=== PATIENT | female | born 1970 | race Caucasian/White ===

== ENCOUNTER 2016-05-05 20:13 | Emergency (ER) | payer BC ==
[2014-04-17 00:31] VITALS: BMI 25.9
[~2016-05-05 20:13] MED LIST: CELEXA20 MG PO; IBUPROFEN600 MG PO; PRILOSEC20 MG PO
== END 2016-05-05 23:03 | disposition home or self-care (01) ==
LOC: D.ER 20:13
DX: J06.9 Acute upper respiratory infection, unspecified (principal); J01.90 Acute sinusitis, unspecified; J20.9 Acute bronchitis, unspecified; F17.200 Nicotine dependence, unspecified, uncomplicated

== ENCOUNTER → 2017-01-05 08:34 | Outpatient (CLI) | payer BC ==
[2014-04-17 00:31] VITALS: BMI 25.9
[~2017-01-05 08:34] MED LIST changes: +HYDROCODONE-APA1 TAB PO; +TORADOL10 MG PO; +VOLTAREN100 GM TOPICAL; +ZOFRAN ODT4 MG/UDTAB PO; +ZYLOPRIM300 MG PO
== END | disposition home or self-care (01) ==
LOC: D.NM 08:34
DX: K80.80 Other cholelithiasis without obstruction (principal)

== ENCOUNTER 2017-01-05 17:37 | Emergency (ER) | payer BC ==
[2014-04-17 00:31] VITALS: BMI 25.9
[~2017-01-05 17:37] MED LIST changes: -HYDROCODONE-APA1 TAB PO; -TORADOL10 MG PO; -VOLTAREN100 GM TOPICAL; -ZOFRAN ODT4 MG/UDTAB PO; -ZYLOPRIM300 MG PO
[2017-01-05 18:11] LABS: BASOPHILS 0.3 % (0-2); EOSINOPHILS 2.3 % (0-7); HEMATOCRIT 39.3 % (36.0-48.0); HEMOGLOBIN 13.2 g/dL (12-16); IMMATURE GRANULOCYTES 0.3 % (0-5); LYMPHOCYTES 32.6 % (15-50); MCH 29.1 pg (26.0-34.0); MCHC 33.6 g/dL (31.0-37.0); MCV 86.6 fL (80.0-100.0); MEAN PLATELET VOLUME 9.5 fL (7.4-10.4); MONOCYTES 7.2 % (2-11); NEUTROPHILS 57.3 % (40-80); PLATELET COUNT 243 10x3/uL (130-400); RBC 4.54 10x6/uL (4.00-5.40); RDW 13.1 % (11.5-14.5); WBC 6.8 10x3/uL (4.8-10.8)
[2017-01-05 18:27] LABS: ALBUMIN 3.6 g/dL (3.4-5.0); ANION GAP 11.8 mmol/L (8-16); BILIRUBIN - TOTAL 0.16 mg/dL (0.2-1.3); CALCIUM 9.1 mg/dL (8.5-10.1); CARBON DIOXIDE 28.3 mmol/L (21.0-32.0); CREATININE - SERUM 1.1 mg/dL (0.6-1.3); POTASSIUM - SERUM 4.1 mmol/L (3.5-5.1); PROTEIN - SERUM 7.7 g/dL (6.4-8.2)
[2017-01-07] MEDS ORDERED: VOLTAREN100 GM TOPICAL (14:50)
[2017-01-07] MEDS ORDERED: ZOFRAN ODT4 MG/UDTAB PO (14:50)
[2017-01-07] MEDS ORDERED: TORADOL10 MG PO (14:51)
[2017-01-07] MEDS ORDERED: HYDROCODONE-APA1 TAB PO (14:51)
[2017-01-07] MEDS ORDERED: ZYLOPRIM300 MG PO (14:51)
== END 2017-01-05 20:12 | disposition home or self-care (01) ==
LOC: D.ER 17:37
PROVIDERS: Family Medicine
DX: K80.50 Calculus of bile duct without cholangitis or cholecystitis without obstruction (principal); F17.200 Nicotine dependence, unspecified, uncomplicated

== ENCOUNTER 2017-01-08 07:58 | Day surgery (SDC) | payer BC ==
[~2017-01-08] VITALS: Ht 172.7 cm; Wt 88.0 kg
[~2017-01-08 07:58] MED LIST changes: +HYDROCODONE-APA1 TAB PO; +TORADOL10 MG PO; +VOLTAREN100 GM TOPICAL; +ZOFRAN ODT4 MG/UDTAB PO; +ZYLOPRIM300 MG PO
[2017-01-08 09:03] LABS: CALCIUM 8.9 mg/dL (8.5-10.1); CARBON DIOXIDE 27.2 mmol/L (21.0-32.0); CREATININE - SERUM 1.1 mg/dL (0.6-1.3); POTASSIUM - SERUM 4.2 mmol/L (3.5-5.1)
[2017-01-08 09:17] LABS: BASOPHILS 0.6 % (0-2); HEMATOCRIT 38.2 % (36.0-48.0); HEMOGLOBIN 12.6 g/dL (12-16); IMMATURE GRANULOCYTES 0.2 % (0-5); LYMPHOCYTES 34.7 % (15-50); MCH 28.5 pg (26.0-34.0); MCV 86.4 fL (80.0-100.0); MEAN PLATELET VOLUME 9.9 fL (7.4-10.4); MONOCYTES 5.5 % (2-11); PLATELET COUNT 214 10x3/uL (130-400); RBC 4.42 10x6/uL (4.00-5.40); WBC 4.8 10x3/uL (4.8-10.8)
[2017-01-08 09:21] VITALS: BP 126/61; Ht 172.7 cm; Wt 88.0 kg
[2017-01-08] MEDS ORDERED: HYDROCODONE-APA1 TAB PO (11:25)
--- NOTE | 2017-01-08 13:35 | NUR ---
5050 DISCHARGE INSTRUCTIONS COMPLETE. PRESCRIPTION FOR NORCO GIVEN. PT ESCORTED OUT BY VOLUNTEER.
--- NOTE | 2017-01-12 14:45 | OP ---
PATIENT NAME: TUNG TEE MEDICAL RECORD: [id number] :70 LOCATION:D.OPS ADMISSION DATE: SURGEON: LAUREANO MAI MD DATE OF OPERATION: 01/08/2017 PREOPERATIVE DIAGNOSIS: Acute cholecystitis. POSTOPERATIVE DIAGNOSIS: Acute cholecystitis. PROCEDURE: Laparoscopic cholecystectomy. SURGEON: Laureano Mai MD REPORT OF PROCEDURE: The patient's abdomen was prepped and draped in sterile fashion. A cutdown was made on the superior aspect of the umbilicus, 0 Vicryls were placed on the inferior aspect of the umbilicus, 0 Vicryls were placed on the fascia bilaterally and the fascia was incised with 15-blade. I then bluntly entered the peritoneal cavity and placed a 12-mm Mariaa port. Under direct visualization, a 5 mm trocar was placed in the epigastrium and 2 more 5-mm trocars were placed in the right subcostal region. The gallbladder was elevated and there was noted to be a lot of inflammatory adhesions present to the fundus and body of the gallbladder. These were taken down with electrocautery and blunt dissection. Eventually, we were able to dissect out the cystic artery and cystic duct and these were clipped proximally and distally and ligated in standard fashion. The gallbladder was taken off the liver bed using electrocautery and placed into an Endo Catch bag. The right upper quadrant was irrigated out and any bleeding from the liver bed was treated with electrocautery. At this point, the ports and insufflation were then removed and the gallbladder was taken out through the umbilicus. The umbilical fascia was closed with interrupted 0 Vicryls times 3. The wounds were irrigated out with normal saline and infused with 10 mL of 0.25% Marcaine with epinephrine. The skin incisions were all closed with subcutaneous 5-0 Monocryl and dressed appropriately. COMPLICATIONS: None. CONDITION: Stable. ANESTHESIA: General endotracheal and local. BLOOD LOSS: Minimal. TRANSINT:[id number] Voice Confirmation ID: [id number] DOCUMENT ID: [id number] LAUREANO MAI MD at 1449 CC: JAYLENE TORRES MD [id number] DICTATION DATE: 01/08/17 1129 [facility] [facility] [address]: 01/08/17 1136 [facility] 01/08/17 [id number] [place] [address]
== END 2017-01-08 13:30 | disposition home or self-care (01) ==
LOC: D.OPS 07:58 → D.PAN 12:30 → D.OPS 13:30
PROVIDERS: Surgery
DX: K80.12 Calculus of gallbladder with acute and chronic cholecystitis without obstruction (principal); Z01.812 Encounter for preprocedural laboratory examination

== ENCOUNTER 2017-01-13 20:52 | Inpatient (IN) | payer BC ==
[~2017-01-13] VITALS: Ht 172.7 cm; Wt 86.2 kg
[2017-01-13 21:30] LABS: BASOPHILS 0.2 % (0-2); HEMATOCRIT 38.7 % (36.0-48.0); HEMOGLOBIN 13.3 g/dL (12-16); IMMATURE GRANULOCYTES 0.2 % (0-5); LYMPHOCYTES 10.3 % (15-50); MCH 28.9 pg (26.0-34.0); MCHC 34.4 g/dL (31.0-37.0); MCV 83.9 fL (80.0-100.0); MEAN PLATELET VOLUME 9.1 fL (7.4-10.4); MONOCYTES 6.1 % (2-11); NEUTROPHILS 80.2 % (40-80); RBC 4.61 10x6/uL (4.00-5.40); RDW 12.9 % (11.5-14.5); WBC 9.5 10x3/uL (4.8-10.8)
[2017-01-13 21:40] LABS: PLATELET COUNT 287 10x3/uL (130-400)
[2017-01-13 21:42] LABS: APPEARANCE CLEAR (CLEAR); BACTERIA FEW /hpf (NONE SEEN); BILIRUBIN NEGATIVE (NEGATIVE); COLOR DK YELLOW (YELLOW); EPITHELIAL CELLS 0-5 /hpf (0-5); GLUCOSE NEGATIVE (NEGATIVE); KETONE NEGATIVE (NEGATIVE); NITRITE NEGATIVE (NEGATIVE); PROTEIN TRACE mg/dL (NEGATIVE); SPECIFIC GRAVITY 1.025 (1.005-1.020); UROBILINOGEN NORMAL (NORMAL); WHITE CELLS - URINE OCC /hpf (0-5)
[2017-01-13 21:43] LABS: BILIRUBIN - TOTAL 1.48 mg/dL (0.2-1.3); CALCIUM 9.5 mg/dL (8.5-10.1); CARBON DIOXIDE 23.4 mmol/L (21.0-32.0); CREATININE - SERUM 1.1 mg/dL (0.6-1.3); POTASSIUM - SERUM 3.4 mmol/L (3.5-5.1)
--- NOTE | 2017-01-14 01:14 | NUR ---
RECIEVED PT TO FLOOR FROM ED. PT IS ALERT AND ORIENTED AND ABLE TO VERBALIZE NEEDS. PT TRANSFERED SELF FROM STRETCHER TO BED. IV IS PATENT AND FLUIDS FROM ED RUNNING. PT STATES PAIN IS 10/10. VSS. PT IS ORIENTED TO ROOM AND USE OF CALL LIGHT. NO NEEDS ARE VERBALIZED AT THIS TIME. WILL CONTINUE TO MONITOR. SIDE RAILS ARE UP X 2. BED IS IN LOWEST POSITION. CALL LIGHT IS WITHIN REACH.
[2017-01-14 01:52] VITALS: BP 157/63; BMI 28.9
[2017-01-14 03:30] VITALS: BP 131/74
--- NOTE | 2017-01-14 07:25 | NUR ---
REPORT RECEIVED, ASSUMED CARE OF PT. SITTING UP IN BED, EASILY AROUSED. C/O PAIN 12/02, PAIN MEDICATION GIVEN ORDERED. NO OTHER COMPLAINTS AT THIS TIME. R AC IV INFUSING FLUIDS ORDERD, ROLANDO C/D/I. BED IN LOWEST POSITION, SIDE RAILS UP X 2, CALL LIGHT WITHIN REACH.
[2017-01-14 07:52] VITALS: BP 99/61
[2017-01-14 10:33] LABS: BASOPHILS 0.2 % (0-2); EOSINOPHILS 4.2 % (0-7); HEMATOCRIT 36.6 % (36.0-48.0); HEMOGLOBIN 12.1 g/dL (12-16); IMMATURE GRANULOCYTES 0.2 % (0-5); LYMPHOCYTES 13.7 % (15-50); MCH 28.4 pg (26.0-34.0); MCHC 33.1 g/dL (31.0-37.0); MONOCYTES 5.2 % (2-11); NEUTROPHILS 76.5 % (40-80); PLATELET COUNT 253 10x3/uL (130-400); RBC 4.26 10x6/uL (4.00-5.40); RDW 13.2 % (11.5-14.5); WBC 8.5 10x3/uL (4.8-10.8)
[2017-01-14 10:40] LABS: MCV 85.9 fL (80.0-100.0)
[2017-01-14 10:41] VITALS: Ht 172.7 cm; Wt 86.2 kg
[2017-01-14 10:55] LABS: ALBUMIN 2.5 g/dL (3.4-5.0); ANION GAP 13.4 mmol/L (8-16); CALCIUM 8.8 mg/dL (8.5-10.1); CARBON DIOXIDE 26.2 mmol/L (21.0-32.0); POTASSIUM - SERUM 3.6 mmol/L (3.5-5.1); PROTEIN - SERUM 6.7 g/dL (6.4-8.2)
[2017-01-14 12:00] VITALS: BP 109/71
[2017-01-14 14:08] LABS: CKMB 0.2 U/L (0.0-3.6); CREATINE KINASE 24 UL (21-215)
[2017-01-14 14:16] LABS: TROPONIN-I < 0.017 ng/mL (0.000-0.060)
[2017-01-14 18:24] VITALS: BP 112/63
[2017-01-14 19:10] LABS: CKMB 0.1 U/L (0.0-3.6); CREATINE KINASE 22 UL (21-215)
[2017-01-14 19:11] LABS: TROPONIN-I < 0.017 ng/mL (0.000-0.060)
[2017-01-14 20:00] VITALS: BP 104/64
[2017-01-15 01:07] LABS: CREATINE KINASE 22 UL (21-215); TROPONIN-I < 0.017 ng/mL (0.000-0.060)
[2017-01-15 04:00] VITALS: BP 99/59
[2017-01-15 05:11] LABS: BASOPHILS 0.2 % (0-2); EOSINOPHILS 3.3 % (0-7); HEMOGLOBIN 10.8 g/dL (12-16); IMMATURE GRANULOCYTES 0.3 % (0-5); LYMPHOCYTES 18.9 % (15-50); MCH 28.3 pg (26.0-34.0); MCHC 32.7 g/dL (31.0-37.0); MCV 86.4 fL (80.0-100.0); MEAN PLATELET VOLUME 9.1 fL (7.4-10.4); MONOCYTES 7.6 % (2-11); NEUTROPHILS 69.7 % (40-80); PLATELET COUNT 265 10x3/uL (130-400); RBC 3.82 10x6/uL (4.00-5.40); RDW 13.3 % (11.5-14.5); WBC 6.4 10x3/uL (4.8-10.8)
[2017-01-15 05:47] LABS: ALBUMIN 2.1 g/dL (3.4-5.0); ANION GAP 12.7 mmol/L (8-16); BILIRUBIN - TOTAL 1.2 mg/dL (0.2-1.3); CALCIUM 8.7 mg/dL (8.5-10.1); CREATININE - SERUM 0.9 mg/dL (0.6-1.3); POTASSIUM - SERUM 3.7 mmol/L (3.5-5.1); PROTEIN - SERUM 6.1 g/dL (6.4-8.2)
--- NOTE | 2017-01-15 07:59 | NUR ---
AWAKE AND ALERT. AMBULATED IN HALLWAY PER SELF. NO C/O AT THIS TIME. LUNGS ARE CLEAR BILATERALLY, NO COUGH NOTED. SKIN IS INTACT WITHOUT REDNESS EXCEPT 4 SMALL INSERTION SITES WHICH ARE DRY AND INTACT WITHOUT SIGNS OF INFECTION. IV TO RIGHT AC IS PATENT WITHOUT REDNESS AT INSERTION SITE. BREAKFAST SERVED IN ROOM.
[2017-01-15 08:13] VITALS: BP 131/96
--- NOTE | 2017-01-15 10:00 | NUR ---
RESTING QUIELTY IN BED. REPORTS UP TO BR PER SELF WITH ALMOST NORMAL STOOL. WILL CONTINUE TO MONITOR.
[2017-01-15 12:25] VITALS: BP 107/68
--- NOTE | 2017-01-15 12:42 | NUR ---
ATE ALL OF FULL LIQUID TRAY WITHOUT NAUSEA. WILL CONTINUE TO MONITOR.
[2017-01-15 16:56] VITALS: BP 115/64
--- NOTE | 2017-01-15 17:49 | NUR ---
IV TO RIGHT AC SWELLING. D/C WITH CATHETER INTACT. RESITED TO LEFT FOREARM AFTER 2 ATTEMPTS WITH 22G.
--- NOTE | 2017-01-15 18:26 | NUR ---
ATE WELL OVER HALF OF SUPPER TRAY. DENIES NEEDS. NO CHANGES NOTED.
[2017-01-15 20:00] VITALS: BP 107/68
[2017-01-16] VITALS: BP 95/53
[2017-01-16 04:00] VITALS: BP 94/51
[2017-01-16 06:16] LABS: BASOPHILS 0.2 % (0-2); EOSINOPHILS 6.1 % (0-7); HEMATOCRIT 29.9 % (36.0-48.0); HEMOGLOBIN 9.9 g/dL (12-16); IMMATURE GRANULOCYTES 0.2 % (0-5); LYMPHOCYTES 21.5 % (15-50); MCH 28.4 pg (26.0-34.0); MCHC 33.1 g/dL (31.0-37.0); MCV 85.9 fL (80.0-100.0); MEAN PLATELET VOLUME 8.8 fL (7.4-10.4); MONOCYTES 6.3 % (2-11); NEUTROPHILS 65.7 % (40-80); PLATELET COUNT 246 10x3/uL (130-400); RBC 3.48 10x6/uL (4.00-5.40); RDW 13.1 % (11.5-14.5); WBC 5.1 10x3/uL (4.8-10.8)
[2017-01-16 06:21] LABS: ANION GAP 11.2 mmol/L (8-16); BILIRUBIN - TOTAL 0.7 mg/dL (0.2-1.3); CALCIUM 8.5 mg/dL (8.5-10.1); CARBON DIOXIDE 25.2 mmol/L (21.0-32.0); POTASSIUM - SERUM 3.4 mmol/L (3.5-5.1); PROTEIN - SERUM 5.8 g/dL (6.4-8.2)
[2017-01-16 07:54] VITALS: BP 116/72
--- NOTE | 2017-01-16 08:01 | NUR ---
AWAKE AND ALERT. ORIENTED X3. NO C/O THIS AM. LUNGS ARE CLEAR BILATERALLY, NO COUGH NOTED. SKIN IS INTACT WITHOUT REDNESS EXCEPT 4 SMALL INSERTION SITES TO ABDOMEN WHICH ARE HEALING WITHOUT SIGNS OF INFECTION. IV TO LEFT FOREARM IS PATENT WITHOUT REDNESS AT INSERTION SITE. DENIES NEEDS.
--- NOTE | 2017-01-16 10:31 | NUR ---
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 PATIENT LIVES WITH HER SPOUSE AND THEY HAVE NO STEPS OR STAIRS AT THEIR HOME. PATIENTS FRIEND IS DRIVING HER HOME TODAY AT DISCHARGE. PATIENT IS INDEPENDENT WITH HER CARE AND HAS NO DME AT HOME. PATIENTS PCP IS DR. TORRES AND PHARMACY IS [facility]. PATIENT DENIES NEEDS FOR HOME HEALTH. CM WILL CONTINUE TO FOLLOW PATIENT WITH D/C NEEDS AND PLANS. PCP DR. MELISSA HILLS [facility]- [phone] HU (SPOUSE) [phone] Anthropologist: Ndyia Whitehead Is the patient Alert and Oriented? Yes 0 * How many steps to enter\exit or inside your home? 0 0 * PCP DR. TORRES 0 * Pharmacy [facility] 0 * Preadmission Environment Home with Family 0 * ADLs Independent 0 * Equipment None 0 * List name and contact numbers for known caregivers / representatives who currently or will assist patient after discharge: HU (SPOUSE) [phone] 0 * Community resources currently utilized None 0 * Additional services required to return to the preadmission environment? Yes 0 * Can the patient safely return to the preadmission environment? Yes 0 * Has this patient been hospitalized within the prior 30 days at any hospital? No 0 Grand Total: 0
--- NOTE | 2017-01-16 12:30 | NUR ---
DISCHARGED TO HOME AMBULATORY WITH FAMILY. DISCHARGE INSTRUCTIONS GIVEN BOTH VERBALLY AND WRITTEN. ALL QUESTIONS ANSWERED. PATIENT VERBALIZED UNDERSTANDING OF SAME. NO NEW PRESCRIPTIONS NEEDED. ALL BELONGINGS WITH PATIENT.
== END 2017-01-16 12:31 | disposition home or self-care (01) | DRG 392 ==
LOC: D.ER 20:52 → D.MS 01-14 00:21 → OBSVTIME 01-14 00:21 → D.MS 01-14 14:47
PROVIDERS: Emergency Medicine; ADMIT Family Medicine Adult Medicine
DX: K59.00 Constipation, unspecified (principal); E86.0 Dehydration; Z90.49 Acquired absence of other specified parts of digestive tract

== ENCOUNTER 2018-05-05 19:00 | Outpatient (CLI) | payer BC ==
[2017-01-14 10:41] VITALS: BMI 28.8
== END 2018-05-05 23:59 | disposition home or self-care (01) ==
LOC: D.MAMMO 19:00
PROVIDERS: ATTEND Emergency Medicine
DX: Z12.31 Encounter for screening mammogram for malignant neoplasm of breast (principal)

== ENCOUNTER 2018-05-31 12:00 | Outpatient (CLI) | payer BC ==
[2017-01-14 10:41] VITALS: BMI 28.8
== END 2018-05-31 13:00 | disposition home or self-care (01) ==
LOC: D.MAMMO 12:00
PROVIDERS: ATTEND Emergency Medicine
DX: R92.8 Other abnormal and inconclusive findings on diagnostic imaging of breast (principal)

== ENCOUNTER → 2018-07-30 15:01 | Outpatient (CLI) | payer OTHER ==
[2017-01-14 10:41] VITALS: BMI 28.8
== END | disposition home or self-care (01) ==
LOC: D.MRI 15:01
PROVIDERS: ATTEND Family Medicine
DX: G62.9 Polyneuropathy, unspecified (principal)